=== PATIENT | male | born 1975 ===

== ENCOUNTER 2021-09-29 16:00 | Outpatient (REF) | payer OTHER, SELFPAY ==
--- NOTE | 2021-09-29 | PFT_ITS ---
INDICATION: Preop. SPIROMETRY: FEV1 to FVC 76% with an FEV1 of 3.88 L which is 129% predicted and an FVC of 5.11 L, which is 137% predicted. No significant response to bronchodilators noted. Maximum voluntary ventilation 112% predicted. LUNG VOLUMES: Total lung capacity 118% predicted with a residual volume 128% predicted. DIFFUSION CAPACITY: DLCO 102% predicted. COMPARISONS: None. INTERPRETATION: No obstructive nor restrictive ventilatory defects identified. No significant response to bronchodilators noted. Normal maximum voluntary ventilation. Lung volumes demonstrating trend of hyperinflation and significant air trapping, possibly due to small airways disease. Diffusion capacity is within normal limits. Clinical correlation warranted. Liban Esquivel MD MR/MODL / [id number]
== END 2021-09-29 16:01 | disposition home or self-care (01) ==
LOC: HO.RESP 16:00
PROVIDERS: PCP Family Medicine; Visit Provider Surgery
DX: Z01.818 Encounter for other preprocedural examination (principal)
CPT/HCPCS: 94060; 94727; 94729

== ENCOUNTER 2024-01-07 05:08 | Emergency (ER) | payer MEDICARE, MEDICAID, SELFPAY ==
--- NOTE | ~2024-01-07 | XR_ITS ---
EXAMINATION: XR TOES, LEFT CLINICAL INFORMATION: Stubbed toe COMPARISON: None available. TECHNIQUE: 3 views of the left toes were obtained. FINDINGS: There is a spiral fracture through the proximal phalanx of the fifth toe with mild lateral angulation of the distal fracture fragment. No other abnormalities are seen. XR/XR toe LT min 2V IMPRESSION: Spiral fracture proximal phalanx fifth toe.
[2024-01-07 05:11] VITALS: BP 124/83; PULSE 70; RESP 18; TEMP 36.7; O2SAT 99; BMI 31.1
--- NOTE | 2024-01-07 06:56 | ED_ITS ---
HPI - Extremity Injury (Lower) General Chief Complaint: Extremity Injury, Lower Stated Complaint: Inj L pinky toe Time Seen by Provider: 01/07/24 06:27 Source: patient Mode of arrival: ambulatory Limitations: no limitations History of Present Illness HPI Narrative: 48 yo male with PMH significant for peripheral neuropathy, and rectal and lung cancer in remission, presents to the ED with injury to left pinky toe. The patient states he went to go to the bathroom at around 4 AM when he hit his toe on the door frame. States he has peripheral neuropathy, causing difficulty with sensation. Rates the pain as a 6/10. Pain less intense after taking shoe off. Reports last taking gabapentin at 10 PM, before injury occurred. States he is able to ambulate. Denies any associated symptoms at this time. MD complaint: other (Left fifth toe) Onset (ago): hour(s) Injury: Left: toes (Left fifth toe ) Place: home Severity scale (1-10): 6 Relieving factors: rest Exacerbating factors: weight bearing and other (Wearing shoe) Context: direct blow (Hit on wall) Other symptoms: none Related Data Allergies Allergy/AdvReac Type Severity Reaction Status Date / Time No Known Allergies Allergy Verified 01/07/24 05:15 Review of Systems Review of Systems: Yes all other systems are reviewed and are negative PMFSH Social History Social History Advance Directives: No Advance Directives Information Provided: Yes Do you have a plan to hurt others: No Plan Physical Exam Vital Signs: Vital Signs: Last Vital Signs Temp 98.1 F 01/07/24 08:54 Pulse 70 01/07/24 08:54 Resp 18 01/07/24 08:54 BP 124/83 01/07/24 08:54 Pulse Ox 99 01/07/24 08:54 O2 Del Method Room Air 01/07/24 08:54 BMI result Body Mass Index 31.1 Appearance: Alert. Oriented X3. No acute distress. Head: normocephalic, atraumatic. Eyes: Pupils equal, round and reactive to light. ENT: Pharynx normal. Neck: Normal inspection. CVS: Normal heart rate and rhythm. Pulses normal. Respiratory: No respiratory distress. Abdomen: Soft and nontender. Skin: Skin warm and dry. Normal skin color. Normal skin turgor. No rashes. Extremities: Left 5th toe angulated laterally. Tenderness to palpation. Unable to bend left 5th toe. No edema. Neuro/psych: Oriented X 3. No motor deficit. No sensory deficit. Normal speech and cognition. Medical Decision Making Medical Decision Making MDM Narrative: 48 yo male with PMH significant for peripheral neuropathy, and rectal and lung cancer in remission, presents to the ED for evaluation of left pinky toe injury. He states he hit his toe on a door frame when getting up to go to the bathroom at around 4 AM. Endorses 6/10 pain. ROS otherwise unremarkable. Toe x-ray revealed fracture of proximal phalanx of fifth toe. lateral angulation on exam. attempted to reduce and then placed in sydnie tape and post-op shoe. discussed XR results and management w/ patient. stable for d/c home Differential Diagnosis Differential Diagnoses: The differential diagnosis associated with the presentation includes Toe fracture, Santiago fracture, toe dislocation, toe sprain, toe contusion Independent Interpretation I performed an independent interpretation of an: Plain X-Ray Interpretation: Fracture of proximal phalanx fifth toe with lateral angulation. Radiology Impression Discussion of test interpretation with radiology: I have reviewed the radiologist's reading. Radiologist Impression: EXAMINATION: XR TOES, LEFT CLINICAL INFORMATION: Stubbed toe COMPARISON: None available. TECHNIQUE: 3 views of the left toes were obtained. FINDINGS: There is a spiral fracture through the proximal phalanx of the fifth toe with mild lateral angulation of the distal fracture fragment. No other abnormalities are seen. XR/XR toe LT min 2V IMPRESSION: Spiral fracture proximal phalanx fifth toe. Prescription Management I considered prescription management with: Pain Medication Chronic Conditions Patient?s care impacted by: Cancer (Rectal and lung cancer in remission ) and Other (Peripheral neuropathy ) Procedures Orthopedic Fracture Reduction Fracture #1: Side: left Fracture Reduction Location: toe Analgesia: none Technique: direct manipulation Post-reduction neuro exam: no change Post-reduction vascular exam: no change Splint Applied: Yes Patient Tolerated Procedure: well and no complications Critical Care Time Critical Care Time Critical Care Time: No Discharge Plan Discharge Clinical Impression: Fracture of toe Patient Disposition: Home, Self-Care Instructions: Toe Fracture (ED), Post Surgical Shoe (ED) Additional Instructions: You have fractured your left fifth toe. We taped it to the adjacent toe in the ED today due to its angulation. Continue to tape to adjacent toe. Wear post-op shoe. Weight-bear as tolerated. Referrals: [facility] [Provider Group] (EXAMINATION: XR TOES, LEFT CLINICAL INFORMATION: Stubbed toe COMPARISON: None available. TECHNIQUE: 3 views of the left toes were obtained. FINDINGS: There is a spiral fracture through the proximal phalanx of the fifth toe with mild lateral angulation of the distal fracture fragment. No other abnormalities are seen. XR/XR toe LT min 2V IMPRESSION: Spiral fracture proximal phalanx fifth toe.) Aneta Duran MD [Primary Care Provider] - Interventions: ED Discharge Assessment Last Done: 01/07/24 08:54 Discharge Date/Time: 01/07/24 08:55 Print Language: Lithuanian
[2024-01-07 08:54] VITALS: BP 124/83; PULSE 70; RESP 18; TEMP 36.7; O2SAT 99
== END 2024-01-07 08:55 | disposition home or self-care (01) ==
PROVIDERS: Emergency Provider Emergency Medicine; PCP Family Medicine
DX: S92.512A Displaced fracture of proximal phalanx of left lesser toe(s), initial encounter for closed fracture (principal); W22.09XA Striking against other stationary object, initial encounter; Y93.9 Activity, unspecified; Y92.9 Unspecified place or not applicable; Y99.9 Unspecified external cause status
CPT/HCPCS: 73660; 99283

== ENCOUNTER 2024-01-27 07:34 | Outpatient (REF) | payer MEDICARE, MEDICAID, SELFPAY ==
--- NOTE | ~2024-01-27 | XR_ITS ---
EXAMINATION: XR FOOT, LEFT CLINICAL INFORMATION: Pain in left foot COMPARISON: None available. TECHNIQUE: AP, lateral, and oblique views of the left foot. FINDINGS: There is a nondisplaced fracture of the proximal phalanx of the little toe. The remainder of the bones are intact. Alignment is anatomic. Joint spaces are maintained. There is slight associated or calcific density along the plantar aspect of the calcaneus. Small Achilles enthesophyte is seen. Possible tiny calcification at the insertion the Achilles tendon. XR/XR foot LT min 3V IMPRESSION: Nondisplaced fracture of the proximal phalanx of the little toe.
== END 2024-01-27 07:35 | disposition home or self-care (01) ==
LOC: HO.HOSX 07:34
PROVIDERS: Visit Provider Physician Assistant
DX: S92.525A Nondisplaced fracture of middle phalanx of left lesser toe(s), initial encounter for closed fracture (principal)
CPT/HCPCS: 73630; 99202

== ENCOUNTER 2024-01-27 09:31 | Outpatient (AMB) | payer MEDICARE, MEDICAID, SELFPAY ==
--- NOTE | 2024-01-27 09:46 | A.OFFVIS_ITS ---
Vital Signs 01/27/24 09:48 Height 5 ft 11 in Weight 222 lb BMI 31.0 Intake Visit Reasons: FC - LT pinky toe fracture Intake Note: Raul a 48 year old male who presents today for an evaluation of his left small toe fracture, DOI 01/07/24. Patient reports that he was walking to his bathroom when he stubbed his toe on the door frame. He presented to [facility] where xrays were taken and placed in a boot. Currently he has intermittent pain. He has hx neuropathy, stating this causes pain, numbness and tingling most of the time. Allergies No Known Allergies Allergy (Verified 01/27/24 09:55) HPI HPI FC - LT pinky toe fracture: Details: 48-year-old male who presents to the office today for evaluation of left 5th metatarsal injury after stubbing his toe on the door frame while walking to his bathroom, 01/07/24. He was seen at ER where x-rays were performed and he was placed in a boot. He currently states he has intermittent pain in his toe as well as numbness and tingling most of the time which he attributes to his history of neuropathy. He does not have a history of diabetes. [facility] Surgical History (Updated 01/27/24 @ 09:50 by LORENA Lee) Hx of abdominal surgery History of lung surgery Social History (Updated 01/27/24 @ 09:51 by LORENA Lee) Patient Tobacco Use Status: Current someday Tobacco user Current occupational status: employed Current occupation: [employer] Review of Systems Const All systems reviewed & are unremarkable except as noted in HPI and below Physical Exam Vital Signs: BMI result Body Mass Index 31.0 Const General: cooperative, healthy appearing, comfortable, no acute distress, well developed and alert Orientation/consciousness: patient oriented x3 HEENT Head: Yes normal to inspection, Yes normocephalic and Yes atraumatic Eyes General: appearance normal, both eyes and all related structures Resp Effort & Inspection: normal respiratory effort and able to speak in complete sentences Cardio Rate: regular rate Peripheral pulses: Peripheral pulses 2+ throughout GI Palpation (GI): Soft to palpation Skin Lesions: no lesions Rashes: no rashes Neuro General: patient oriented x3 Extrem Other: Left foot: Normal to inspection. No redness or swelling. Very mild tenderness to palpation. He has decreased sensation due to neuropathy. Office Procedures Fracture Care Fracture Billing Code: Fracture Billing Code Results Reviewed Results Reviewed: Xrays were obtained in the office today and personally reviewed by me of the left foot show non displaced stable fracture through the small toe Assessment & Plan Assessment & Plan (1) Toe fracture, left: Code(s): S92.912A - Unspecified fracture of left toe(s), initial encounter for closed fracture Category: Medical Qualifiers: Encounter type: initial encounter Fracture alignment: nondisplaced Fracture type: closed Phalanx: middle Toe: lesser toe Qualified Code(s): S92.525A - Nondisplaced fracture of middle phalanx of left lesser toe(s), initial encounter for closed fracture Plan He is already sydnie taping his toe which he will continue doing based off his comfort. He is also wearing a postop shoe that he will use for comfort. Over the next few weeks, he will transition to a regular street shoe as tolerated. If symptoms persist or worsens, patient will contact the office, otherwise follow- up as needed. Orders: Orders XR foot LT min 3V Today M79.672 - Pain in left foot Patient Instructions: Scribed for Dominick Meyer PA-C, by Hany Babin bilingual medical receptionist, on 01/27/2024 at 9:30 AM EST.? I, Dominick Meyer PA-C, have personally reviewed and agree with the information entered by the scribe. Coding Level of Care Code New Pt Level 3 (66523) Diagnoses Closed nondisplaced fracture of middle phalanx of lesser toe of left foot, initial encounter S92.525A Encounter type: initial encounter Fracture alignment: nondisplaced Fracture type: closed Phalanx: middle Toe: lesser toe CPT Codes Fracture Care - Fracture Billing Code: Fracture Billing Code ([id number])
[2024-01-27 09:48] VITALS: BMI 31.0
== END 2024-01-27 10:15 | disposition home or self-care (01) ==
PROVIDERS: PCP Family Medicine; Visit Provider Physician Assistant
DX: S92.525A Nondisplaced fracture of middle phalanx of left lesser toe(s), initial encounter for closed fracture (principal)
CPT/HCPCS: 99203